=== PATIENT | male | born 1995 | race Caucasian/White ===

== ENCOUNTER 2016-08-25 21:53 | Emergency (ER) | payer SELFPAY ==
[2016-08-25 21:59] VITALS: BP 125/69; PULSE 69; RESP 18; TEMP 97.5; O2SAT 96
[2016-08-25] MEDS ORDERED: OFLOXACIN 0.3% SOLN PREPACK OPHT.BTL TAKEHOME ONE (22:22)
--- NOTE | 2016-08-25 22:26 | EDPHY ---
H & P Stated Complaint: 3 DAYS, EYE IRRIATATION, THINKS PINK EYE Time Seen by Provider: 08/25/16 22:18 HPI/ROS: CHIEF COMPLAINT: Left eye irritation HISTORY OF PRESENT ILLNESS: Patient is a 21-year-old man who comes to the emergency department complaining of irritation in his left eye. He 1st noticed it 2 days ago. He denies foreign body or trauma. He wears contacts typically and states that it began after at hard time getting a contact out 3 days ago. No fevers. No vision changes. No headache. REVIEW OF SYSTEMS: Constitutional: denies: chills, fever, recent illness, recent injury EENTM: See HPI Respiratory: denies: cough, shortness of breath Cardiac: denies: chest pain, irregular heart rate, lightheadedness, palpitations Gastrointestinal/Abdominal: denies: abdominal pain, diarrhea, nausea, vomiting, blood streaked stools Genitourinary: denies: dysuria, frequency, hematuria, pain Musculoskeletal: denies: joint pain, muscle pain Skin: denies: lesions, rash, jaundice, bruising Neurological: denies: headache, numbness, paresthesia, tingling, dizziness, weakness Hematologic/Lymphatic: denies: blood clots, easy bleeding, easy bruising Immunologic/allergic: denies: HIV/AIDS, transplant EXAM: GENERAL: Well-appearing, well-nourished and in no acute distress. HEAD: Atraumatic, normocephalic. EYES: Pupils equal round and reactive to light, extraocular movements intact, left conjunctiva erythematous, yellow drainage ENT: TMs normal, nares patent, oropharynx clear without exudates. Moist mucous membranes. NECK: Normal range of motion, supple without lymphadenopathy or JVD. LUNGS: Breath sounds clear to auscultation bilaterally and equal. No wheezes rales or rhonchi. HEART: Regular rate and rhythm without murmurs, rubs or gallops. ABDOMEN: Soft, nontender, normoactive bowel sounds. No guarding, no rebound. No masses appreciated. BACK: No CVA tenderness, no spinal tenderness, step-offs or deformities EXTREMITIES: Normal range of motion, no pitting or edema. No clubbing or cyanosis. NEUROLOGICAL: Cranial nerves II through XII grossly intact. Normal speech, normal gait. 5/5 strength, normal movement in all extremities, normal sensation PSYCH: Normal mood, normal affect. SKIN: Warm, dry, normal turgor, no visible rashes or lesions. Source: Patient Exam Limitations: No limitations - Personal History Current Tetanus/Diphtheria Vaccine: Yes - Medical/Surgical History Hx Asthma: No Hx Chronic Respiratory Disease: No Hx Diabetes: No Hx Cardiac Disease: No Hx Renal Disease: No Hx Cirrhosis: No Hx Alcoholism: No Hx HIV/AIDS: No Hx Splenectomy or Spleen Trauma: No Other PMH: TOE SURG - Family History Significant Family History: No pertinent family hx - Social History Smoking Status: Never smoked Alcohol Use: Sober Drug Use: None Constitutional: Initial Vital Signs Temperature (C) 36.4 C 08/25/16 21:55 Heart Rate 69 08/25/16 21:55 Respiratory Rate 18 08/25/16 21:55 Blood Pressure 125/69 H 08/25/16 21:55 O2 Sat (%) 96 08/25/16 21:55 O2 Delivery Mode Room Air Allergies/Adverse Reactions: No Known Allergies Allergy (Unverified 08/25/16 21:55) Home Medications: Medication Instructions Recorded NK [No Known Home Meds] 08/25/16 Medical Decision Making ED Course/Re-evaluation: Patient clinically has conjunctivitis. I will treat him with Ocuflox. He is happy with this plan and declines any further workup or testing at this time. Differential Diagnosis: Partial list of the Differential diagnosis considered include but were not limited to; conjunctivitis, foreign body and although unlikely based on the history and physical exam, I also considered abrasion, glaucoma, eye redness. I discussed these differential diagnoses and the plan with the patient as well as the usual and expected course. The patient understands that the diagnosis is provisional and that in medicine we are not always correct and that further workup is often warranted. Usual and customary warnings were given. All of the patient's questions were answered. The patient was instructed to return to the emergency department should the symptoms at all worsen or return, otherwise to followup with the physician as we discussed. - Data Points Medications Given: Discontinued Medications Ofloxacin (Ocuflox 0.3% Opht Drops Prepack) 1 btl TAKEHOME EDNOW ONE Stop: 08/25/16 22:23 Last Admin: 08/25/16 22:26 Dose: 1 btl Departure - Departure Disposition: Home, Routine, Self-Care Clinical Impression: Conjunctivitis, left eye Qualifiers: Conjunctivitis type: acute Acute conjunctivitis type: bacterial Qualified Code( s): H10.32 - Unspecified acute conjunctivitis, left eye Condition: Fair Instructions: Ofloxacin (Into the eye), Conjunctivitis (ED) Additional Instructions: 2 drops every 4 hours for 4 days Referrals: Lex Bradley MD [Medical Doctor] - As per Instructions
== END 2016-08-25 22:42 | disposition home or self-care (01) ==
DX: H10.32 Unspecified acute conjunctivitis, left eye (principal)